=== PATIENT | female | born 1995 | race African-American/Black ===

== ENCOUNTER 2024-05-01 06:07 | Outpatient (REF) | payer OTHER, SELFPAY ==
--- OUTSIDE RECORDS SUMMARY | 2024-05-01 06:11 | XMS_ITS | Encounter Summary ---
Author Organization [facility] Address [address] [place] [address] Care Team Providers Care Costuming Supervisor Name Role Phone Linsey Keyes MD Primary Care Prov ider Encounter Details Date Type Department Care Team ([facility] Contact Info) Description 03/16/2024 Telephone Adult Medicine [facility] [address] [place] [phone] Linsey Keyes MD [address] [place] [address] Social History Tobacco Use Types Packs/Day Years Used Date Smoking Tobacco: Never Smokeless Tobacco: Never Alcohol Use Standard Drinks/Week Comments No 0 (1 standard drink = 0.6 oz pur e alcohol) Housing Instability Answer Date Recorde d Are you worried that in the next 2 months you may not have stable housing? No 04/05/2024 Food Access & Nutrition Answer Date Rec orded Do you have access to a vari ety of food including fruits and vegetables? Yes 04/05/2024 Health Literacy Answer Date Recorded How often do you need to hav e someone help you when you read instructions, pamphlets, or other written material from your doctor or pharmacy? Never 04/05/2024 Caregiver: How often do you need to have someone help you when you read instructions, pamphlets, or other written material from your doctor or pharmacy? Not on file 04/05/2024 Financial Risk Answer Date Recorded How hard is it for you to pa y for the very basics like food, housing, medical care, and air conditioning / heating? Not very hard 04/05/2024 Transportation Answer Date Recorded Has the lack of transportati on kept you from meetings, work, or from getting things needed for daily living? No Has the lack of transportati on kept you from medical appointments or from getting medications? No 04/05/2024 Social Isolation Answer Date Recorded How often do you feel lonely or isolated from th ose around you? Never 04/05/2024 Food Risk Answer Date Recorded Within the past 12 months we worried whether our food would run out before we got money to buy more. Never true 04/05/2024 Within the past 12 months th e food we bought just didn't last and we didn't have money to get more. Never true 04/05/2024 Dependent Care Answer Date Recorded Do you need help finding or paying for care for your loved ones. For example, child development assistant or elderly care for an older adult? No 04/05/2024 Education Answer Date Recorded Do you think completing more education or training, like finishing a GED, going to college, or learning a trade, would be helpful for you? No 04/05/2024 Employment and Income Answer Date Recor ded During the last four weeks, have you been actively looking for work? No 04/05/2024 Living Situation Answer Date Recorded What is your living situation? 0 04/05/2024 Sex and Gender Information Value Date Recorded Sex Assigned at Not on file Gender Identity Not on file Sexual Orientation Not on file Job Start Date Occupation Industry Not on file Not on file Not on file documented as of this encounter Plan of Treatment Upcoming Encounters Date Type Department Care Team (Late st Contact Info) Description 06/21/2024 2:30 PM EDT Office Visit Obstetrics and Gynecology - [address] [phone] Ann Diaz, [address] documented as of this encounter Visit Diagnoses Not on filedocumented in this encounter Care Teams Costuming Supervisor Relationship Specialty Start Date End Date Linsey Keyes MD [address] [place] [address] PCP - General Internal Medicine 03/05/24 documented as of this encounter
--- OUTSIDE RECORDS SUMMARY | 2024-05-01 06:11 | XMS_ITS | Clinical Summary ---
Author Organization [facility] Address [address] [place] [id number] Care Team Providers Care Rand Maker Name Role Phone Elba Jaramillo MD Primary Care Provider [phone] Allergies Active Allergy Reactions Criticality Noted Date Comments Seasonal 05/16/2020 Medications Medication Sig Dispensed Refills Start Date End Date Status Norgestim-Eth Estrad Triphasic 0.18/0.215/0.25 MG-35 MCG TABS Take by mouth daily. 0 Active Active Problems Problem Noted Date Diagnosed Date Family history of pulmonary embolism 06/01/2020 Anxiety about health 06/01/2020 Social History Tobacco Use Types Packs/Day Years Used Date Smoking Tobacco: Never Smokeless Tobacco: Never Alcohol Use Standard Drinks/Week Comments No 0 (1 standard drink = 0.6 oz pur e alcohol) Sex and Gender Information Value Date Recorded Sex Assigned at Not on file Gender Identity Not on file Sexual Orientation Not on file Last Filed Vital Signs Vital Sign Reading Time Taken Comments Blood Pressure 112/77 05/26/2020 11:13 AM EST Pulse 117 05/26/2020 11:13 AM EST Temperature 36.5 ??C (97.7 ??F) 05/26/2020 11:[address] Respiratory Rate - - Oxygen Saturation 100% 05/26/2020 11:13 AM EST Inhaled Oxygen Concentration - - Weight 53.1 kg (117 lb) 05/26/2020 11:13 AM EST Height 165.1 cm (5' 5 ) 05/26/2020 11:13 AM EST Body Mass Index 19.47 05/26/2020 11:13 AM EST Plan of Treatment Health Maintenance Due Date Last Done Comments Hepatitis B Vaccines (1 of 3 - 3-dose series) 1997 Hepatitis C Screening 1997 COVID-19 Vaccine (#1) 06/17/1998 Depression Screening 2009 Preventative Health Evaluation 12/19/2015 DTap / Tdap / Td (1 - Tdap) 2016 Cervical Cancer Screening (P ap Smear) 2018 Influenza Vaccine (#1) 2023 Pneumococcal Vaccine Aged Out No long er eligible based on patient's age to complete this topic RSV Ped < 20 months Aged Out No longe r eligible based on patient's age to complete this topic Care Teams Rand Maker Relationship Specialty Start Date End Date Elba Jaramillo MD PCP - General Internal Medicine 04/22/20
--- OUTSIDE RECORDS SUMMARY | 2024-05-01 06:11 | XMS_ITS | Clinical Summary ---
Author Organization [facility] [address] [place] [address] [place] [phone] Phone Care Team Providers Care Chief Diversity Officer Name Role Phone Linsey Keyes MD Primary Care Prov ider Allergies Active Allergy Reactions Criticality Noted Date Comments Other Runny nose 01/03/2018 Seasonal Allergies Dust, Pollen, Dander, etc. Medications Medication Sig Dispensed Refills Start Date End Date Status norgestimate-eth inyl estradioL (ORTHO TRI-CYCLEN,MICHELLE SSA) 0.18/0.215/0.25 mg-35 mcg (28) per tablet Take by mouth 1 (one) time each day. Active fluticasone propionate (FLONASE) 50 mcg/actuation nasal spray Administer 2 sprays into each nostril 1 (one) time each day. Shake gently. Before first use, prime pump. After use, clean tip and replace cap. 16 g 2 04/05/2024 Active loratadine (CLARITIN) 10 mg tablet Take 1 tablet (10 mg total) by mouth 1 (one) time each day. 90 tablet 1 04/05/2024 Active diphenhydrAMINE- zinc acetate (Benadryl Itch Stopping) cream Apply 1 Dose topically 3 times daily as needed for Itching. 01/07/2023 04/05/2024 Discontinued (Therapy completed) loratadine (CLARITIN) 10 mg tablet TAKE 1 TABLET BY MOUTH EVERY DAY OTC NOT COVERED 11/29/2022 04/05/2024 Discontinued (Reorder) fluticasone propionate (FLONASE) 50 mcg/actuation nasal spray 1-2 sprays into each nare daily as needed 02/23/2022 04/05/2024 Discontinued (Reorder) Active Problems Problem Noted Date Diagnosed Date Anxiety 04/10/2020 Overview (01/18/2024): Last Assessment & Plan: Referred to and given community resources in case unable to get an appt there. I recommended exercise and stress relief strategies in the meantime. Encounters Date Type Department Care Team Description 04/05/2024 8:00 AM EST Office Visit Adult Medicine [address] [phone] Maricruz Zapata PA Adult general medical examination (Primary Dx); Screening for depression; Encounter for screening involving social determinants of health (SDoH); Seasonal allergies; Environmental allergies 03/16/2024 Telephone Adult Medicine [address] [phone] Linsey Hernandez MD from Last 3 Months Immunizations Name Administration Dates Next Due HPV, Quadrivalent 09/22/2016,04/21/2016,02/18/20 16 Hepatitis B (Xshlaro-O-Cjauk , Recombivax HB-Adult) 19yo and older 10/04/2022 Influenza Quadravalent, MDCK , 0.5ml, preservative free (Flucelvax) 6mo and older 01/07/2023 Influenza trivalent, 0.5mL, preservative free (Fluarix; FluLaval; Fluzone) ages 6mo and older (Afluria) 3 years and older 01/15/2022 Influenza, Unspecified 01/09/2021 Tdap Tetanus diptheria acell ular pertussis (Boostrix; Adacel) 7yo and older 09/24/2022 Varicella live (Varivax) 12mo and older 10/12/19 23,12/21/2012 Surgical History Surgery Date Site/Laterality Comments OTHER SURGICAL HISTORY PROCEDURE: DENIES PREVIOUS SURGERY Medical History Medical History Date Comments Chlamydia infection DX:Chlamydia infection Family History Medical History Relation Name Comments Other: pulmonary embolism Father di ed age 41 Diabetes Maternal Grandmother No Known Problems Mother Colon cancer Paternal Grandfather passed at 74 Hyperlipidemia Paternal Grandmother Breast cancer Neg Hx Ovarian cancer Neg Hx Pancreatic cancer Neg Hx Prostate cancer Neg Hx Uterine cancer Neg Hx Relation Name Status Comments Brother Alive Father Maternal Grandmother Mother Alive Paternal Grandfather Paternal Grandmother Alive Sister Alive Social History Tobacco Use Types Packs/Day Years Used Date Smoking Tobacco: Never Smokeless Tobacco: Never Tobacco Cessation:Counseling Given: Not Answered Alcohol Use Standard Drinks/Week Comments No 0 [...] care for your loved ones. For example, child's nurse or elderly care for an older adult? [...] file Not on file Not on file Obstetrics History Last Filed Vital Signs Vital Sign Reading Time Taken Comments Blood Pressure 118/65 04/05/2024 8:05 AM EST Pulse 89 04/05/2024 8:05 AM EST Temperature 36.2 ??C (97.2 ??F) 04/05/2024 8:05 AM ES T Respiratory Rate 12 04/05/2024 8:05 AM EST Oxygen Saturation - - Inhaled Oxygen Concentration - - Weight 64 kg (141 lb) 04/05/2024 8:05 AM EST Height 165.1 cm (5' 5 ) 04/05/2024 8:05 AM EST Body Mass Index 23.46 04/05/2024 8:05 AM EST Plan of Treatment Upcoming Encounters Date Type Department Care Team (Late st Contact Info) Description 06/21/2024 2:30 PM EDT Office Visit Obstetrics and Gynecology - [address] [phone] Ann Diaz, [facility] [address] [place] [address] Health Maintenance Due Date Last Done Comments Hepatitis B Vaccines (2 of 3 - 19+ 3-dose series) 11/01/2022 10/04/2022 Cervical Cancer Screening: Pap Smear 04/10/2023 04/10/2020, 04/10/2020, 04/10/2020 Depression Screening 04/05/2025 04/05/2024 Social Influencers of Health Screening 04/05/2025 04/05/2024 Cholesterol Screening (Lipid Panel) 02/24/2027 02/24/2022 DTaP,Tdap,and Td Vaccines (2 - Td or Tdap) 09/24/2032 09/24/2022 HPV Vaccines Completed 09/22/2016, 04/04, 02/18/2016 COVID-19 Vaccine Discontinued 12/10/2020, 11/12/2020 Varicella Vaccines Aged Out 10/11/2022, 12/21/2012 No longer eligible based on patient's age to complete this topic Gonorrhea/Chlamydia Screening Discontinued 10/13/2022 Influenza Vaccine Completed 01/12/2024, , 01/15/2022, Additional history exists HIB Vaccines Aged Out No longer eligi ble based on patient's age to complete this topic HIV Screening Discontinued Hepatitis A Vaccines Aged Out No long er eligible based on patient's age to complete this topic Hepatitis C Screening Discontinued IPV Vaccines Aged Out No longer eligi ble based on patient's age to complete this topic MMR Vaccines Aged Out No longer eligi ble based on patient's age to complete this topic Meningococcal ACWY Vaccine Aged Out N o longer eligible based on patient's age to complete this topic Pneumococcal Vaccine: Pediatrics (0 to 5 Years) and At-Risk Patients (6 to 64 Years) Aged Out No longer eligible based on patient's age to complete this topic RSV Immunization Patients Under 20 months Aged Out No longer eligible based on patient's age to complete this topic Procedures Procedure Name Priority Date/Time Associated Diagnosis Comments GONORRHEA/CHLAMYDIA SCRREENING Routine 10/13/2022 LIPID PANEL Routine 02/24/2022 PAP SMEAR Routine 04/10/2020 from Last 3 Months or Most Recently Relevant to Health Maintenance Results * Gonorrhea/Chlamydia Screening (10/13/2022) Gonorrhea/Chla mydia Screening abstracted Historical Provider MD DELBERT MEYER E * Lipid panel (02/24/2022) LDL/HDL Ratio 2 0 - 4 Triglycerides 63 0 - 150 mg/dL Cholesterol 173 0 - 200 mg/dL HDL 75 40 mg/dL LDL Cholesterol 86 0 - 100 mg/dL Blood Venous blood specimen / Unknown Historical Provider LAB BLOOD ORDERAB LES * Pap smear (04/10/2020) 04/10/2020 Narrative HISTORICAL TESTING LAB RESULTING AGENCY - 04/14/2020 12:11 PM EST [id number] THINPREP PAP, IMAGED: NEGATIVE FOR SQUAMOUS INTRAEPITHELIAL LESION AND MALIGNANCY . GLADIS CAICEDO(ASCP) (CASE ELECTRONICALLY SIGNED 04 14 2020) ADEQUACY: SATISFACTORY ENDOCERVICAL/TRANSFORMATION ZONE COMPONENT PRESENT. SOURCE: THINPREP PAP HPV IF ASCUS, CERVICAL, IMAGED CLINICAL INFORMATION: HPV ANY DIAGNOSIS. PAP HX NEG, NO LMP RECORDED [Z12.4] Stephanie Miranda MD LAB CYTOLOGY ORDERA BLES HISTORICAL TESTING LAB RESULTING AGENCY from Last 3 Months or Most Recently Relevant to Health Maintenance Care Teams Chief Diversity Officer Relationship Specialty Start Date End Date Linsey Keyes MD [address] [place] [phone] PCP - General Internal Medicine 03/05/24
--- OUTSIDE RECORDS SUMMARY | 2024-05-01 06:11 | XMS_ITS | Encounter Summary ---
Author Organization [facility] Address [address] [place] [address] Care Team Providers Care Charting Clerk Name Role Phone Linsey Keyes MD Primary Care Prov ider Reason for Visit * Reason Comments Annual Exam Encounter Details Date Type Department Care Team ([facility] st Contact Info) Description 04/05/2024 8:00 AM EST Office Visit Adult Medicine [facility] [address] [place] [address] Francisco Zapata PA [address] [place] [address] Adult general medical examination (Primary Dx); Screening for depression; Encounter for screening involving social determinants of health (SDoH); Seasonal allergies; Environmental allergies Social History Tobacco Use Types Packs/Day Years [...] care for your loved ones. For example, childcare teacher or elderly care for an older adult? [...] on file documented as of this encounter Last Filed Vital Signs Vital Sign Reading [...] Mass Index 23.46 04/05/2024 8:05 AM EST documented in this encounter Ordered Prescriptions Prescription Sig Dispensed Refills Start Date End Da te loratadine (CLARITIN) 10 mg tablet Take 1 tablet (10 mg total) by mouth 1 (one) time each day. 90 tablet 1 04/05/2024 fluticasone propionate (FLONASE) 50 mcg/actuation nasal spray Administer 2 sprays into each nostril 1 (one) time each day. Shake gently. Before first use, prime pump. After use, clean tip and replace cap. 16 g 2 04/05/2024 documented in this encounter Progress Notes * GIANCARLO Medina - 04/05/2024 8:00 AM EST Images from the original note were not included. Patient Education Well Visit, Ages 18 to 65: Care Instructions Well visits can help you stay healthy. Your doctor has checked your overall health and may have suggested ways to take good care of yourself. Your doctor also may have recommended tests. You can helpprevent illness with healthy eating, good sleep, vaccinations, regular exercise, and other steps. Get the tests that you and your doctor decide on. Depending on your age and risks, examples might include screening for diabetes; hepatitis C; HIV; and cervical, breast, lung, and colon cancer. Screening helps find diseases before any symptoms appear. Eat healthy foods. Choose fruits, vegetables, whole grains, lean protein, and low-fat dairy foods. Limit saturated fat and reduce salt. Limit alcohol. Men should have no more than 2 drinks a day. Women should have no more than 1. For some people, no alcohol is the best choice. Exercise. Get at least 30 minutes of exercise on most days of the week. Walking can be a good choice. Reach and stay at your healthy weight. This will lower your risk for many health problems. Take care of your mental health. Try to stay connected with friends, family, and community, and find ways to manage stress. If you're feeling depressed or hopeless, talk to someone. A counselor can help. If you don't have acounselor, talk to your doctor. Talk to your doctor if you think you may have a problem with alcohol or drug use. This includes prescription medicines, marijuana, and other drugs. Avoid tobacco and nicotine: Don't smoke, vape, or chew. If you need help quitting, talk to your doctor. Practice safer sex. Getting tested, using condoms or dental dams, and limiting sex partners can help prevent STIs. Use control if it's important to you to prevent . Talk with your doctor about your choices and what might be best for you. Prevent problems where you can. Protect your skin from too much sun, wash your hands, brush your teeth twice a day, and wear a seat belt in the car. Where can you learn more? Scan the [employer] code or Go to https://www.Safe Shepherd.Eventyard/goTaja.comchart Enter P072 in the search box to learn more about Well Visit, Ages 18 to 65: Care Instructions. Current as of: November 07, 2022 Content Version: 14.2 ?? 2023 [employer]. Care instructions adapted under license by your healthcare professional. If you have questions about a medical condition or this instruction, always ask your healthcare professional. [employer] disclaims any warranty or liability for your use of this information. * GIANCARLO Medina - 04/05/2024 8:00 AM ESTAddended by: FRANCISCO ZAPATA on: 04/27/2024 11:41 AM Modules accepted: Orders * Ankita Jones MA - 04/05/2024 8:00 AM EST Depression Screening Will the patient answer the depression risk questions?: Yes Over the last 2 weeks, how often have you been bothered by little interest or pleasure in doing things?: Not at all Over the last 2 weeks, how often have you been bothered by feeling down, depressed, or hopeless?: Not at all Depression Risk: 0 Social Influencers of Health Who provided answers?: Self Within the past 12 months we worried whether our food would run out before we got money to buy more.: Never true Within the past 12 months the food we bought just didn't last and we didn't have money to get more.: Never true How hard is it for you to pay for the very basics like food, housing, medical care, and air conditioning / heating?: Not very hard Are you worried that in the next 2 months you may not have stable housing?: No Do you have access to a variety of food including fruits and vegetables?: Yes Has the lack of transportation kept you from meetings, work, or from getting things needed for daily living?: No Has the lack of transportation kept you from medical appointments or from getting medications?: No How often do you feel lonely or isolated from those around you?: Never How often do you need to have someone help you when you read instructions, pamphlets, or other written material from your doctor or pharmacy?: Never * GIANCARLO Medina - 04/05/2024 8:00 AM EST CHIEF COMPLAINT: Annual Exam IDENTIFIER: Flora Hodges is a 28 y.o. old female. HPI: Patient presents today for annual physical exam. No tobacco use. No alcohol use. No drug use. Sexually active with male partner and feels safe in relationship. Denies domestic abuse. Declines STD testing. Compliant with OCP and getting menses monthly. Also using condoms for /STD prevention. Wears glasses. Eye exam is up-to-date. Dental exam is up-to-date. Diet consist primarily of home-cooked meals. Seldom intake of restaurant dining/takeout. She maintains an active lifestyle and exercises at the gym for 1 to 2 hours every day. She has upcoming appointment with CHIEF GROWTH OFFICER for routine exam/Pap. She is performing monthly self breast exams. She has allergic rhinitis and is using loratadine in addition to Flonase nasal spray with good effect. Requesting refills. She is feeling well today and has no complaints. ROS: GENERAL: No malaise, significant weight loss or fever HEENT: No changes in hearing or vision, nose bleeds. See HPI NECK: No lumps, goiter, pain or significant neck swelling RESPIRATORY: No cough, wheezing or shortness of breath CARDIOVASCULAR: No chest pain, leg swelling or palpitations BREAST: no lumps, discharge, pain or change in skin GI: No abdominal discomfort, blood in stools or black stools : No dysuria, frequency or incontinence CHIEF GROWTH OFFICER: No abnormal vaginal bleeding or abnormal vaginal discharge. MUSCULOSKELETAL: No joint pain or swelling, back pain, or muscle pain. SKIN: No lesions, rash or itching PSYCH: No sleep disturbance, mood disorder or recent psychosocial stressors. HEMATOLOGY/LYMPHOLOGY No prolonged bleeding, easy bruisability or swollen nodes ENDOCRINE: No cold or heat intolerance, polyuria, polydipsia or goiter. NEURO: No persistent headache, syncope, seizures, weakness or numbness PAST MEDICAL HISTORY: Patient Active Problem List Diagnosis Date Noted Anxiety 04/10/2020 SOCIAL HISTORY: Social History Tobacco Use Smoking status: Never Smokeless tobacco: Never Substance Use Topics Alcohol use: No FAMILY HISTORY: Family Status Relation Name Status Mother Alive Father Sister Alive Brother Alive MGM PGM Alive PGF Neg Hx (Not Specified) No partnership data on file Family History Problem Relation Name Age of Onset No Known Problems Mother Other (Other: pulmonary embolism) Father age 41 Diabetes Maternal Grandmother Hyperlipidemia Paternal Grandmother Colon cancer Paternal Grandfather passed at 74 Breast cancer Neg Hx Uterine cancer Neg Hx Ovarian cancer Neg Hx Pancreatic cancer Neg Hx Prostate cancer Neg Hx ACTIVE MEDICATIONS: Outpatient Medications Marked as Taking for the 04/05/24 encounter (Office Visit) with GIANCARLO Medina Medication Sig Dispense Refill fluticasone propionate (FLONASE) 50 mcg/actuation nasal spray Administer 2 sprays into each nostril1 (one) time each day. Shake gently. Before first use, prime pump. After use, clean tip and replacecap. 16 g 2 loratadine (CLARITIN) 10 mg tablet Take 1 tablet (10 mg total) by mouth 1 (one) time each day. 90 tablet 1 norgestimate-ethinyl estradioL (ORTHO TRI-CYCLEN,TRINESSA) 0.18/0.215/0.25 mg-35 mcg (28) per tablet Take by mouth 1 (one) time each day. [DISCONTINUED] diphenhydrAMINE-zinc acetate (Benadryl Itch Stopping) cream Apply 1 Dose topically 3times daily as needed for Itching. [DISCONTINUED] fluticasone propionate (FLONASE) 50 mcg/actuation nasal spray 1-2 sprays into each nare daily as needed [DISCONTINUED] loratadine (CLARITIN) 10 mg tablet TAKE 1 TABLET BY MOUTH EVERY DAY OTC NOT COVERED ALLERGIES: Other PHYSICAL EXAM: Blood pressure 118/65, pulse 89, temperature 36.2 ??C (97.2 ??F), temperature source Temporal, resp. rate 12, height 1.651 m (65 ), weight 64 kg (141 lb), last menstrual period 03/14/2024. Body mass index is 23.46 kg/m??. BMI is 18.5 to 24.9 (within the normal range) and will be followed APPEARANCE: Alert and in no acute distress EYES: PERRLA, conjunctiva and sclera normal. EOMI EARS: External ears normal. Canals clear. TMs normal. NOSE/SINUS: Nares normal. Septum midline. Mucosa normal. No drainage or sinus tenderness. THROAT: no erythema or exudates NECK: Neck supple, no adenopathy, thyroid symmetric HEART: RRR with normal S1 and S2 ,no murmurs, no gallops. LUNG: clear to auscultation BREAST (FEMALE): Examination is declined. Patient will continue care with CHIEF GROWTH OFFICER LYMPH NODES: grossly normal ABDOMEN: Bowel sounds normoactive, no bruits, soft, non-tender, without organomegaly or palpable masses CHIEF GROWTH OFFICER (FEMALE): Examination is declined. Patient will continue care with CHIEF GROWTH OFFICER. BACK: No pain to palpation with good flexion and extension EXTREMITIES: Extremities warm and well perfused without clubbing, cyanosis, or edema NEURO: Awake, alert and oriented x 3. Ambulating independently with steady gait. No focal deficit. SKIN: Skin color, texture, turgor normal. No rashes or lesions. PSYCH: Calm. Pleasant. Cooperative LABS/IMAGING: Lab Results Component Value Date CHOL 173 02/24/2022 LDL 86 02/24/2022 HDL 75 02/24/2022 TRIG 63 02/24/2022 IMPRESSION: 1. Adult general medical examination 2. Screening for depression 3. Encounter for screening involving social determinants of health (SDoH) 4. Seasonal allergies 5. Environmental allergies PLAN: Seasonal/environmental allergies well-controlled with loratadine and Flonase nasal spray. Patient will continue as directed. Refills provided. 1. Health maintenance: The patient presented for an evaluation of general health. As part of this visit, we reviewed the following issues, which are considered an essential part of preventative health in this age group: - Cervical cancer testing every 1-3 years - appointment is pending - Blood pressure annual screening performed - Cholesterol screening every five years - ordered - Nutritional and exercise counseling - patient advised to continue with well- balanced diet and regular physical activity - Screening for depression - over the past TWO WEEKS, been bothered by little INTEREST or PLEASURE in doing things or by feeling DOWN, DEPRESSED, or HOPELESS? No - Screening for domestic abuse - Screening for Type 2 diabetes mellitus in those with hypertension and/or hyperlipidemia - Prevention of and/or testing for infectious diseases, which may include Chlamydia, Gonorrhea, Syphilis, HIV, Hepatitis C and Tuberculosis - advice about STD prevention provided - One time hepatitis C screening in all adults - Recommendations about immunizations - patient is due for COVID-19 vaccination but defers this - Recommendation of an eye exam for glaucoma once in this age range - patient is up-to-date - Preconception counseling - see Substance & Sexuality section of medical record and patient isalready on contraception with CHIEF GROWTH OFFICER provider - Screening for substance abuse (including tobacco, alcohol, and recreational drugs) - see Substance & Sexuality section of medical record - Genetic cancer risk screening - NO INDICATION: Hereditary Cancer Syndrome Risk Assessment completed and evaluated. No indication found for genetic testing at this time. - In addition to reviewing these issues, I have reviewed the following sections of the chart: Past Medical History, Social History, and Social History - Did you have a dental visit in the last 12 months? Yes - Did you have a dental problem in the last 6 months? No Patient understands and agrees to plan. Patient will return to the office annually for routine carewith PCP. Will contact the office sooner with any problems or concerns. Orders Placed This Encounter Procedures CBC and differential Standing Status: Future Standing Expiration Date: 04/05/2025 Comprehensive metabolic panel Standing Status: Future Standing Expiration Date: 04/05/2025 Lipid panel with reflex to direct LDL Standing Status: Future Standing Expiration Date: 04/05/2025 GIANCARLO Medina on 04/05/2024 at 8:33 AM EST documented in this encounter Plan of Treatment Upcoming Encounters Date Type Department Care Team (Late st Contact Info) Description 06/21/2024 2:30 PM EDT Office Visit Obstetrics and Gynecology - [address] [phone] Ann Diaz, [facility] [address] [facility] [place] [address] Scheduled Orders Name Type Priority Associated Diagnoses Orde r Schedule CBC and differential Lab Routine Adult general medical examination 1 Occurrences starting 04/27/2024 until 04/27/2025 Comprehensive metabolic panel Lab Routine Adult general medical examination 1 Occurrences starting 04/27/2024 until 04/27/2025 Lipid panel with reflex to direct LDL Lab Routine Adult general medical examination 1 Occurrences starting 04/27/2024 until 04/27/2025 documented as of this encounter Visit Diagnoses Diagnosis Adult general medical examination- Primary Unspecified general medical examination Screening for depression Encounter for screening involving social determinants of health (SDoH) Seasonal allergies Allergic rhinitis, cause unspecified Environmental allergies Other allergy, other than to medicinal agents documented in this encounter Discontinued Medications Medication Sig Discontinue Reason Start Date End Da te diphenhydrAMINE-zinc acetate (Benadryl Itch Stopping) cream Apply 1 Dose topically 3 times daily as needed for Itching. Therapy completed 01/07/2023 04/05/2024 loratadine (CLARITIN) 10 mg tablet TAKE 1 TABLET BY MOUTH EVERY DAY OTC NOT COVERED Reorder 11/29/2022 04/05/2024 fluticasone propionate (FLONASE) 50 mcg/actuation nasal spray 1-2 sprays into each nare daily as needed Reorder 02/23/2022 04/05/2024 documented as of this encounter Additional Health Concerns Assessment Noted Time PHQ-9 Depression Total Score: 0 04/05/19 25 8:04 AM EST documented as of this encounter Care Teams Charting Clerk Relationship Specialty Start Date End Date Linsey Keyes MD [address] [place] [address] PCP - General Internal Medicine 03/05/24 documented as of this encounter
[2024-05-01 06:33] LABS: MANUAL DIFF FLAG NO
[2024-05-01 06:57] LABS: Basophils Percent Auto 0.7 % (0-2); Eosinophils Absolute Auto 0.7 X10*3/uL (0.0-0.4); Eosinophils Percent Auto 11.6 % (0-4); Hematocrit 40.7 % (37.0-47.0); Hemoglobin 13.5 g/dl (12.0-16.0); Imm Gran Abs Auto 0.01 X10*3/uL (0.00-0.03); Imm Gran Pct Auto 0.2 % (0.0-0.4); Lymphocytes Absolute Auto 2.5 X10*3/uL (1.2-4.9); Lymphocytes Percent Auto 42.9 % (20-40); Mean Corpuscular HGB Conc 33.2 g/dl (31.0-35.0); Mean Corpuscular Hemoglobin 29.2 pg (27.0-33.0); Mean Corpuscular Volume 88.1 fL (80.0-98.0); Mean Platelet Volume 10.1 fL (9.4-12.3); Monocytes Absolute Auto 0.5 X10*3/uL (0.1-1.2); Monocytes Percent Auto 8.3 % (2-11); Neutrophils Absolute Auto 2.1 x10*3/uL (2.0-8.3); Neutrophils Percent Auto 36.3 % (45-73); Platelet Count 164 X10*3/uL (160-400); Red Blood Count 4.62 X10*6/uL (4.20-5.50); Red Cell Distribution Width 12.6 % (11.0-16.0); White Blood Count 5.9 X10*3/uL (4.8-10.8)
[2024-05-01 07:44] LABS: Alanine Aminotransferase 31 U/L (0-31); Alkaline Phosphatase 64 U/L (39-117); Anion Gap 12 (12-20); Aspartate Amino Transferase 33 U/L (5-31); Bilirubin Total 0.3 mg/dL (0.0-1.0); Blood Urea Nitrogen 11 mg/dL (9-16); Calcium 8.5 mg/dL (8.4-10.2); Carbon Dioxide 24 mmol/L (22-29); Chloride 106 mmol/L (96-108); Cholesterol 160 mg/dL (<200); Estimated Glomerular Filt Rate > 60; Glucose Random 91 mg/dL (60-115); HDL Cholesterol 61 mg/dL (>40); LDL Cholesterol Calculated 92 mg/dL (<100); Potassium 4.2 mmol/L (3.3-5.1); Sodium 138 mmol/L (135-145); Total Protein 7.3 g/dL (6.5-8.0); Triglycerides 38 mg/dL (<150)
[2024-05-01 11:20] LABS: Reflex LDLD? No
== END 2024-05-01 06:08 | disposition home or self-care (01) ==
LOC: HO.LAB 06:07
PROVIDERS: PCP Internal Medicine; Visit Provider Physician Assistant
DX: Z00.00 Encounter for general adult medical examination without abnormal findings (principal)
CPT/HCPCS: 36415; 80053; 80061; 85025

== ENCOUNTER 2024-07-25 05:58 | Outpatient (REF) | payer OTHER, SELFPAY ==
--- OUTSIDE RECORDS SUMMARY | 2024-07-25 06:01 | XMS_ITS | Encounter Summary ---
Author Organization [facility] Address [address] [place] [address] Care Team Providers Care Dye Weigher Name Role Phone Linsey Keyes MD Primary Care Prov ider Reason for Visit * Reason Onset Date Comments Results 06/27/2024 Encounter Details Date Type Department Care Team ([facility] Contact Info) Description 06/27/2024 Telephone Obstetrics and Gynecology [facility] [address] [place] [phone] Lucero Benton MA Results Social History Tobacco Use Types Packs/Day Years [...] care for your loved ones. For example, director of child welfare services or elderly care for an older adult? [...] What is your living situation? 0 04/05/2024 Comments No Sex and Gender Information Value Date Recorded Sex Assigned at Not on file Legal Sex Female 10:48 AM EST Gender Identity Not on file Sexual Orientation Not on file documented as of this encounter Progress Notes * Bebe Kohler - 06/27/2024 2:28 PM EDT Pt returned call. Appt has been scheduled as instructed below. 08/15/24 @345 * Lucero Benton MA - 06/27/2024 1:17 PM EDT Pt need a follow up appt in 6 weeks for re test Left voice message for patient to contact the office. , documented in this encounter Plan of Treatment Upcoming Encounters Date Type Department Care Team (Late st Contact Info) Description 08/15/2024 3:45 PM EDT Office Visit Obstetrics and Gynecology - [address] [phone] Rhianna Pulliam CNM [address] [place], [place] [phone] documented as of this encounter Visit Diagnoses Not on filedocumented in this encounter Additional Health Concerns Assessment Noted Time PHQ-9 Depression Total Score: 0 04/05/19 25 8:04 AM EST documented as of this encounter Care Teams Dye Weigher Relationship Specialty Start Date End Date Linsey Keyes MD [address] [place] [id number] PCP - General Internal Medicine 03/05/24 documented as of this encounter
--- OUTSIDE RECORDS SUMMARY | 2024-07-25 06:01 | XMS_ITS | Clinical Summary ---
Author Organization [facility] Address [address] [place] [address] Care Team Providers Care Sectionizer Name Role Phone Elba Jaramillo MD Primary Care Provider [phone] Allergies Active Allergy Reactions Criticality Noted Date [...] age to complete this topic Care Teams Sectionizer Relationship Specialty Start Date End Date Elba Jaramillo MD PCP - General Internal Medicine 04/22/20
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
--- OUTSIDE RECORDS SUMMARY | 2024-07-25 06:01 | XMS_ITS | Encounter Summary ---
Author Organization [facility] Address [address] [place] [address] Care Team Providers Care Ops Manager Name Role Phone Elba Jaramillo MD Primary Care Provider Becca Baker MD Primary Care Provider Franlkin Vela Primary Care Provider [phone] Linsey Apple MD Primary Care Prov ider Stephanie Miranda MD Unavailable [phone] Encounter Details Date Type Department Care Team Description 01/05/2018 Release of Information Medical Records [address] [place] [id number] Abstract, Provider Social History Tobacco Use Types Packs/Day Years Used Date Smoking Tobacco: Never Smokeless Tobacco: Never Alcohol Use Standard Drinks/Week Comments No 0 (1 standard drink = 0.6 oz pur e alcohol) Alcohol Habits Answer Date Recorded How often do you have a drink containing alcohol ? Monthly or less 02/23/2022 How many drinks containing a lcohol do you have on a typical day when you are drinking? 1 or 2 02/23/2022 How often do you have six or more drinks on one occasion? Never 02/23/2022 Social Isolation Answer Date Recorded In a typical week, how many times do you talk on the phone with family, friends, or neighbors? More than three times a week 02/23/2022 How often do you get togethe r with friends or relatives? More than three times a week 02/23/2022 How often do you attend chur ch or moravian services? Never 02/23/2022 Do you belong to any clubs o r organizations such as bahai groups, unions, fraternal or athletic groups, or school groups? No 02/23/2022 How often do you attend meet ings of the clubs or organizations you belong to? Never 02/23/2022 Are you now , , , , never or living with a partner? Never 02/23/2022 Physical Activity Answer Date Recorded On average, how many days pe r week do you engage in moderate to strenuous exercise (like walking fast, running, jogging, dancing, swimming, biking, or other activities that cause a light or heavy sweat)? 5 days 02/23/2022 On average, how many minutes do you engage in exercise at this level? 60 min 02/23/2022 Stress Answer Date Recorded Do you feel stress - tense, restless, nervous, or anxious, or unable to sleep at night because your mind is troubled all the time - these days? Only a little 02/23/2022 Financial Resource Strain Answer Date R ecorded How hard is it for you to pa y for the very basics like food, housing, medical care, and heating? Not hard at all 02/23/2022 Intimate Partner Violence Answer Date R ecorded Within the last year, have y ou been afraid of your partner or ex-partner? No 02/23/2022 Within the last year, have y ou been humiliated or emotionally abused in other ways by your partner or ex-partner? No Within the last year, have y ou been kicked, hit, slapped, or otherwise physically hurt by your partner or ex-partner? No 02/23/2022 Within the last year, have y ou been raped or forced to have any kind of sexual activity by your partner or ex-partner? No 02/23/2022 Food Insecurity Answer Date Recorded Within the past 12 months, y ou worried that your food would run out before you got money to buy more. Never true 10/28/2020 Within the past 12 months, t he food you bought just didn't last and you didn't have money to get more. Never true 02/23/2022 Transportation Needs Answer Date Record ed In the past 12 months, has l ack of transportation kept you from medical appointments or from getting medications? No 02/03 In the past 12 months, has l ack of transportation kept you from meetings, work, or getting things needed for daily living? No 02/23/2022 Housing Stability Answer Date Recorded In the last 12 months, was t here a time when you were not able to pay the mortgage or rent on time? No 02/23/2022 In the last 12 months, how many places have you lived? Not asked In the last 12 months, was t here a time when you did not have a steady place to sleep or slept in a jail (including now)? No 02/23/2022 Sex Assigned at Date Recorded Not on file Job Start Date Occupation Industry Not on file Not on file Not on file documented as of this encounter Plan of Treatment Not on file documented as of this encounter Visit Diagnoses Not on filedocumented in this encounter Care Teams Ops Manager Relationship Specialty Start Date End Date Elba Jaramillo MD PCP - General Internal Medicine 10/27/17 02/26/21 Becca Cox MD PCP - General Internal Medicine 02/27/21 07/30/21 Franklin Paul [address] [place] [id number] PCP - General Internal Medicine 07/31/21 12/27/21 Linsey Apple MD [address] [place] [id number] PCP - General Internal Medicine 12/28/21 Stephanie Miranda MD [address] [place] [phone] Specialist Obstetrics/Gynecology 03/01/23 documented as of this encounter
--- OUTSIDE RECORDS SUMMARY | 2024-07-25 06:01 | XMS_ITS | Clinical Summary ---
Author Organization [facility] [address] [place] [address] [place] [phone] Phone Care Team Providers Care Jackhammer Operator Name Role Phone Linsey Keyes MD Primary Care Prov ider Allergies Active Allergy Reactions Criticality Noted Date Comments Other Runny nose 01/03/2018 Seasonal Allergies Dust, Pollen, Dander, etc. Medications fluticasone propionate (FLONASE) 50 mcg/actuation nasal spray Administer 2 sprays into each nostril 1 (one) time each day. Shake gently. Before first use, prime pump. After use, clean tip and replace cap. 16 g 2 04/05/19 25 Active norgestimate-e thinyl estradioL (ORTHO TRI-CYCLEN,TRI BERTA) 0.18/0.215/0.2 5 mg-35 mcg (28) per tablet Take 1 tablet by mouth 1 (one) time each day. 84 tablet 3 06/22/19 25 026 Active loratadine (CLARITIN) 10 mg tablet Take 1 tablet (10 mg total) by mouth 1 (one) time each day. 90 tablet 1 07/11/19 25 Active loratadine (CLARITIN) 10 mg tablet Take 1 tablet (10 mg total) by mouth 1 (one) time each day. 90 tablet 1 04/05/19 25 025 Discontinued(Re order) azithromycin (ZITHROMAX) 500 mg tablet Take 2 tablets (1,000 mg total) by mouth 1 (one) time for 1 dose. 2 tablet 06/28/19 25 025 loratadine (CLARITIN) 10 mg tablet Take 1 tablet (10 mg total) by mouth 1 (one) time each day. 90 tablet 1 07/11/19 25 025 Discontinued Active Problems Problem Noted Date Diagnosed Date Anxiety 04/10/2020 Overview (01/18/2024): Last Assessment & Plan: Referred to and given community resources in case unable to get an appt there. I recommended exercise and stress relief strategies in the meantime. Encounters Date Type Department Care Team Description 07/24/2024 Telephone Adult Medicine East - [address] [phone] Ra Sampson PA Forms/questionnaires 06/27/2024 Telephone Obstetrics and Gynecology - [address] [phone] Lucero Benton [place] Results 06/21/2024 2:30 PM EDT Office Visit Obstetrics and Gynecology - [address] [phone] Ann Diaz CNM Encounter for gynecological examination without abnormal finding (Primary Dx); Surveillance for control, oral contraceptives from Last 3 Months Immunizations Name Administration Dates Next Due HPV, Quadrivalent 09/22/2016,04/21/2016,02/18/20 16 Hepatitis B (Aohwcgd-S-Mdskt , Recombivax HB-Adult) 19yo and older 10/04/2022 [...] for your loved ones. For example, child nurse or elderly care for an older [...] on file Sexual Orientation Not on file Obstetrics History Para Term AB IAB SAB Ectopic Multiple Livin g Live Births 0 0 0 0 0 0 0 0 0 0 0 Last Filed Vital Signs Vital Sign Reading Time Taken Comments Blood Pressure 136/80 06/21/2024 2:30 PM EDT Pulse 81 06/21/2024 2:30 PM EDT Temperature 36.2 ??C (97.2 ??F) 04/05/2024 8:05 AM ES T Respiratory Rate 12 04/05/2024 8:05 AM EST Oxygen Saturation - - Inhaled Oxygen Concentration - - Weight 66.2 kg (146 lb) 06/21/2024 2:30 PM EDT Height 165.1 cm (5' 5 ) 06/21/2024 2:30 PM EDT Body Mass Index 24.3 06/21/2024 2:30 PM EDT Plan of Treatment Upcoming Encounters Date Type Department Care Team (Late st Contact Info) Description 08/15/2024 3:45 PM EDT Office Visit Obstetrics and Gynecology - [address] [phone] Rhianna Pulliam, [place] [place] [address] Health Maintenance Due Date Last Done Comments Hepatitis B Vaccines (2 of 3 - 19+ 3-dose series) 11/01/2022 10/04/2022 Depression Screening 04/05/2025 04/05/2024 Social Influencers of Health Screening 04/05/2025 04/05/2024 Cholesterol Screening (Lipid Panel) 02/24/2027 02/24/2022 Cervical Cancer Screening: Pap Smear 06/23/2027 06/22/2024, 04/10/2020, 04/10/2020, Additional history exists DTaP,Tdap,and Td Vaccines (2 - Td or Tdap) 09/24/2032 09/24/2022 HPV Vaccines Completed 09/22/2016, 04/04, 02/18/2016 COVID-19 Vaccine Discontinued 12/10/2020, 11/12/2020 Varicella Vaccines Aged Out 10/11/2022, 12/21/2012 No longer eligible based on patient's age to complete this topic Influenza Vaccine Completed 01/12/2024, , 01/15/2022, Additional history exists Gonorrhea/Chlamydia Screening Discontinued 06/22/2024, 10/13/2022 HIB Vaccines Aged Out No longer eligi [...] patient's age to complete this topic Meningococcal B Vaccine Aged Out No l onger eligible based on patient's age to complete this topic Pneumococcal Vaccine: Pediatrics (0 to 5 Years) and At-Risk Patients (6 to 64 Years) Aged Out No longer eligible based on patient's age to complete this topic RSV Immunization Patients Under 20 months Aged Out No longer eligible based on patient's age to complete this topic Procedures Procedure Name Priority Date/Time Associated Diagnosis Comments CHLAMYDIA TRACHOMATIS AND NEISSERIA GONORRHOEAE BY TMA, THINPREP Routine 06/22/2024 9:36 AM EDT Encounter for gynecological examination without abnormal finding PAP SMEAR Routine 06/22/2024 9:36 AM EDT Encounter for gynecological examination without abnormal finding TRICHOMONAS VAGINALIS PCR Routine 06/22/2024 9:36 AM EDT Encounter for gynecological examination without abnormal finding LIPID PANEL Routine 02/24/2022 from Last 3 Months or Most Recently Relevant to Health Maintenance Results * (ABNORMAL) Chlamydia trachomatis and neisseria gonorrhoeae by tma, thinprep (06/22/2024 9:36 AM EDT) N. gonorrhoeae, RNA Probe Negative Negative LAB MICROBIOLOGY METHOD 06/26/2024 12:52 PM EDT [facility] Chlamydia, RNA Probe Positive(A) Negative LAB MICROBIOLOGY METHOD 06/26/2024 12:52 PM EDT [facility] Brushing/Spatula Cervix uteri structure / Unknown 06/22/2024 9:36 AM EDT 06/25/2024 6:14 AM EDT us Ann Diaz CNM LAB CYTOLOGY ORDERABLES Final Result Performing Organization Address [facility]/ZIP Co de Phone Number [facility] [address] [place] [address], [place] [phone] * Trichomonas vaginalis molecular study (06/22/2024 9:36 AM EDT) [facility] Trichomonas vaginalis Negative Negative LAB MICROBIOLOGY METHOD 06/26/2024 1:12 PM EDT [facility] Brushing/Spatula Cervix uteri structure / Unknown 06/22/2024 9:36 AM EDT 06/25/2024 6:14 AM EDT us Ann Diaz CNM LAB BLOOD ORDERABLES Final Res ult Performing Organization Address City/[facility]/ZIP Co de Phone Number [facility] [address] [place] [address], [place] [phone] * Pap smear (06/22/2024 9:36 AM EDT) Pathologist [facility] Interpretation Negative for intraepithelial lesion or malignancy 06/25/2024 3:16 PM EDT [facility] General Categorization Negative 06/25/2024 3:16 PM EDT [facility] LMP 06/12/2024 06/25/2024 3:16 PM EDT [facility] Specimen Adequacy Satisfactory for evaluation, endocervical/allison sformation zone component present 06/25/2024 3:16 PM EDT [facility] Pap Methodology Liquid Based Pap Test 06/25/2024 3:16 PM EDT [facility] Disclaimer The Pap test is a screening test which carries an inherent false negative rate. These test results should be correlated with the patient's clinical findings and history. This Pap test was processed using an automated screening system. Technical cytopathology services provided by [facility], at [address] [place] [address] (CLIA # [id number]/Michelle Flores MD, Inspector Open Die.) 06/25/2024 3:16 PM EDT [facility] Console Pap Interpretation Reported 06/25/2024 3:16 PM EDT [facility] Brushing/Spatula Cervix uteri structure / Unknown 06/22/2024 9:36 AM EDT 06/22/2024 9:36 AM EDT Ann Diaz CNM LAB CYTOLOGY ORDERABLES Final Result [facility]) [facility] [address] [place] [address], * Lipid panel (02/24/2022) LDL/HDL Ratio 2 0 - 4 Triglycerides 63 0 - 150 mg/dL Cholesterol 173 0 - 200 mg/dL HDL 75 >=40 mg/dL LDL Cholesterol 86 0 - 100 mg/dL Blood Venous blood specimen / Unknown us Historical Provider LAB BLOOD ORDERABLES Meagan l Result from Last 3 Months or Most Recently Relevant to Health Maintenance Insurance First To File [facility] Care Teams Jackhammer Operator Relationship Specialty Start Date End Date Linsey Keyes MD [address] [place] [id number] PCP - General Internal Medicine 03/05/24
--- OUTSIDE RECORDS SUMMARY | 2024-07-25 06:01 | XMS_ITS | Clinical Summary ---
Author Organization [facility] Address [address] [place] [address] Care Team Providers Care Wheelchair Driver Name Role Phone Linsey Apple MD Primary Care Prov ider Stephanie Miranda MD Unavailable [phone] Allergies Active Allergy Reactions Severity Noted Date Comments Seasonal Allergies Runny Nose/Rhinitis 01/04/20 18 Dust, Pollen, Dander, etc. Medications Medication Sig Dispensed Refills Start Date End Date Status fluticasone (Flonase) 50 MCG/ACT nasal spray 1-2 sprays into each nare daily as needed 16 g 1 02/23/2022 Active Norgestim-Eth Estrad Triphasic (Tri-Estarylla) 0.18/0.215/0.25 MG-35 MCG Tab Take 1 Tablet by mouth daily. 84 Tablet 3 10/13/2022 Active loratadine (CLARITIN) 10 MG tablet TAKE 1 TABLET BY MOUTH EVERY DAY OTC NOT COVERED 90 Tablet 1 11/29/2022 Active diphenhydrAMINE-zinc acetate (Benadryl Itch Stopping) cream Apply 1 Dose topically 3 times daily as needed for Itching. 28.3 g 2 01/07/2023 Active Active Problems Problem Noted Date Family history of pulmonary embolism 10/2020 Anxiety 04/10/2020 Last Assessment & Plan: Referred to and given community resources in case unable to get an appt there. I recommended exercise and stress relief strategies in the meantime. Resolved Problems Problem Noted Date Resolved Date NO ACTIVE MEDICAL PROBLEMS 12/06/201706/03 Immunizations Name Administration Dates Next Due COVID-19 (Moderna) 12/10/2020,11/12/2020 HPV (Gardasil) 09/22/2016,04/21/2016,02/18/2016 Hepatitis B > 19yrs 10/04/2022 Influenza (> 6 Months) 01/15/2022 Influenza Flu (PT Reported) 01/09/2021 Influenza Vaccine-preservati ve Free-quadrivalent 4 Years 01/07/2023 Tdap 09/24/2022 Varicella 10/11/2022,12/21/2012 Family History Medical History Relation Name Comments pulmonary embolism Father age 41 Diabetes Maternal Grandmother No Known Problems Mother Hypercholesterolemia Paternal Grandmother CA Breast Negative Hx CA Colon Negative Hx CA Ovarian Negative Hx Cancer of the Pancreas Negative Hx Cancer of the Prostate Negative Hx Uterine Cancer Negative Hx Relation Name Status Comments Brother Alive Father Maternal Grandmother Mother Alive Paternal Grandfather Alive Paternal Grandmother Alive Sister Alive Social History [...] often do you attend chur ch or worship services? Never 02/23/2022 Do you belong to any clubs o r organizations such as restorationist groups, unions, fraternal or athletic groups, or [...] place to sleep or slept in a m[facility]p (including now)? No 02/23/2022 Sex Assigned at Date Recorded Not on file Job Start Date Occupation Industry Not on file Not on file Not on file Last Filed Vital Signs Vital Sign Reading Time Taken Comments Blood Pressure 115/70 03/01/2023 12:00 PM EST Pulse 98 03/01/2023 12:00 PM EST Temperature 36.3 ??C (97.4 ??F) 03/01/2023 1 2:00 PM EST Respiratory Rate 14 03/01/2023 12:0 0 PM EST Oxygen Saturation 98% 03/01/2023 12: 00 PM EST Inhaled Oxygen Concentration - - Weight 56.6 kg (124 lb 12.8 oz) 023 12:00 PM EST Height 165.1 cm (5' 5 ) 03/01/2023 12:0 0 PM EST Body Mass Index 20.77 03/01/2023 12:00 PM EST Plan of Treatment Health Maintenance Due Date Last Done Comments CERVICAL CANCER SCREENING 04/10/2023 04/10/2020 INFLUENZA (Season Ended) 2024 023, 01/15/2022, 01/09/2021, Additional history exists CHOLESTEROL SCREENING 02/24/2027 02/24/2022 , 01/04/2018, 01/03/2018 BASELINE HEALTH EXAM 18-39 03/01/202803/01, 02/23/2022, 10/28/2020, Additional history exists DTAP/TDAP/TD (3 - Td or Tdap) 09/24/2032 09/24/2022, 12/04/2015 (External Completion) PNEUMOCOCCAL VACCINE FOR HIGH RISK PATIENTS (#1) 2062 Covid-19 Vaccine ( season) 2112 12/10/2020, 11/12/2020 Postponed from 12/04/2023 (Patient Refused) Care Teams Wheelchair Driver Relationship Specialty Start Date End Date Linsey Apple MD [address] [place] [phone] PCP - General Internal Medicine 12/28/21 Stephanie Miranda MD [address] [place] [address] Specialist Obstetrics/Gynecology 03/01/23
--- OUTSIDE RECORDS SUMMARY | 2024-07-25 06:01 | XMS_ITS | Encounter Summary ---
Author Organization [facility] Address [address] [place] [address] Care Team Providers Care Laborer Beam House Name Role Phone Elba Jaramillo MD Primary Care Provider Becca Baker MD Primary Care Provider Franklin Vela Primary Care Provider [phone] Linsey Apple MD Primary Care Prov ider Stephanie Miranda MD Unavailable [phone] Encounter Details Date Type Department Care Team Description 05/26/2020 Supervisor [employer] Report Medical Records [address] [place] [id number] Kirk Cortes MD Social History Tobacco Use Types Packs/Day Years [...] often do you attend chur ch or faith services? Never 02/23/2022 Do you belong to any clubs o r organizations such as sabianism groups, unions, fraternal or athletic groups, or [...] place to sleep or slept in a assisted (including now)? No 02/23/2022 Sex Assigned at Date Recorded Not on file Job Start Date Occupation Industry Not on file Not on file Not on file documented as of this encounter Plan of Treatment Not on file documented as of this encounter Visit Diagnoses Not on filedocumented in this encounter Care Teams Laborer Beam House Relationship Specialty Start Date End Date Elba Jaramillo MD PCP - General Internal Medicine 10/27/17 02/26/21 Becca Cox MD PCP - General Internal Medicine 02/27/21 07/30/21 Franklin Paul [address] [place] [address] PCP - General Internal Medicine 07/31/21 12/27/21 Linsey Apple MD [address] [place] [address] PCP - General Internal Medicine 12/28/21 Stephanie Miranda MD [address] [place] [address] Specialist Obstetrics/Gynecology 03/01/23 documented as of this encounter
[2024-07-25 08:44] LABS: HBS Num1 22.91 mIU/mL (0-7.99); ~Hepatitis B Surface Antibody REACTIVE (Nonreactive)
[2024-07-26 09:04] LABS: Mumps Virus IgG Antibody >300.00 AU/mL; Rubeola IgG (Measles) >300.00 AU/mL; Varicella IgG Antibody 2.68 S/CO
[2024-07-27 22:29] LABS: TS Negative Control Passed; TS Panel A 0; TS Panel B 0; TS Positive Control Passed; TSpotTB Negative (Negative)
== END 2024-07-25 05:59 | disposition home or self-care (01) ==
LOC: HO.LAB 05:58
PROVIDERS: Visit Provider Physician Assistant Medical
DX: Z13.29 Encounter for screening for other suspected endocrine disorder (principal); Z13.228 Encounter for screening for other metabolic disorders; Z13.0 Encounter for screening for diseases of the blood and blood-forming organs and certain disorders involving the immune mechanism; Z13.21 Encounter for screening for nutritional disorder
CPT/HCPCS: 36415; 86481; 86706; 86735; 86762; 86765; 86787